=== PATIENT | male | born 1955 | race Caucasian/White ===

== ENCOUNTER 2018-06-28 07:37 | Day surgery (SDC) | payer OTHER, BC ==
[2018-06-28] MEDS ORDERED: MIDAZOLAM 1 MG/ML 2 ML INJ ×3 (07:55→10:53)
[2018-06-28] MEDS ORDERED: FENTAnyl 50 MCG/ML VIAL ×2 (08:11→10:53)
== END 2018-06-28 11:42 | disposition home or self-care (01) ==
LOC: GIL 07:37
DX: Z12.11 Encounter for screening for malignant neoplasm of colon (principal); E11.9 Type 2 diabetes mellitus without complications
CPT/HCPCS: 45378; 82962; 88305